=== PATIENT | male | born 1995 | race Caucasian/White ===

== ENCOUNTER 2020-02-05 01:04 | Emergency (ER) | payer OTHER, SELFPAY ==
[2020-02-05] VITALS (7 sets, daily range): BP systolic 115–155; BP diastolic 63–89; PULSE 73–114; RESP 14–22; TEMP 36.7; O2SAT 93–100
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
--- NOTE | 2020-02-05 01:20 | ECG_ITS ---
Measurements Intervals [place] Rate: 96 P: 71 GA: 147 QRS: 50 QRSD: 106 T: 45 QT: 329 QTc: 416 Interpretive Statements SINUS RHYTHM BASELINE ARTIFACT- I, II, III NORMAL ECG Electronically Signed On 02-05-2020 7:19:18 CDT by Viraj Vázquez D.O.
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
[2020-02-05] MEDS: SODIUM CHLORIDE 0.9% IV 1,000 ML 999 ML IV CONT (01:39)
--- NOTE | 2020-02-05 01:54 | PC.NURSE ---
pt attempted to give urine sample, no success. pt refused straight cath. pt given glass of water per verbal order by pa. pt to CT at this time.
--- NOTE | 2020-02-05 01:59 | PC.NURSE ---
this RN called edu in lab due to CMP order reading ordered and not received. edu states that label wasn't sent down w/ blood. this RN informed edu that the label was scanned and sent down in the side of the bag. edu states she will look for it. notified.
[2020-02-05 02:02] LABS: Basophils Absolute Auto 0.1 K/mm3 (0.0-0.1); Basophils Percent Auto 0.3 % (0.2-1.2); Eosinophils Percent Auto 0.1 % (0-4.4); Hematocrit 43.3 % (42.0-52.0); Hemoglobin 14.4 g/dL (14.0-18.0); Immature Granulocyte Absolute 0.14 K/mm3 (0.00-0.031); Immature Granulocyte Percent A 0.7 % (0-0.5); Lymphocytes Percent Auto 8.4 % (18.3-44.2); Mean Corpuscular HGB Conc 33.3 g/dl (32-36); Mean Corpuscular Hemoglobin 29.7 pg (26-34); Mean Corpuscular Volume 89.3 fl (80-100); Mean Platelet Volume 9.9 fl (7.4-10.4); Monocytes Absolute Auto 1.5 K/mm3 (0.1-0.6); Monocytes Percent Auto 6.8 % (2.6-8.5); Neutrophils Absolute Auto 17.9 K/mm3 (1.3-6.7); Neutrophils Percent Auto 83.7 % (45.5-73.1); Platelet Count Result 343 k/mm3 (150-375); Red Blood Count 4.85 M/mm3 (4.6-6.20); Red Cell Distribution Width 12.1 % (11.5-14.5); White Blood Count 21.4 K/mm3 (4.5-10.0)
[2020-02-05 02:12] LABS: Acetaminophen < 10 ug/mL (10-30); Ethanol < 10 mg/dL (<10); Salicylate < 1.0 mg/dL (2-20)
[2020-02-05 02:28] LABS: Alanine Aminotransferase 16 U/L (4-50); Albumin Level 4.4 g/dL (3.5-5.1); Alkaline Phosphatase 84 U/L (38-126); Aspartate Amino Transferase 24 U/L (17-59); Bilirubin,Total 0.1 mg/dL (0.2-1.3); Blood Urea Nitrogen 15 mg/dL (9-20); Calcium 8.4 mg/dL (8.4-10.2); Carbon Dioxide 28 mmol/L (22-30); Chloride 105 mmol/L (98-107); Estimated CRCL calculation 122 ml/min; Estimated Glomerular Filt Rate > 60; Glucose 127 mg/dL (75-110); Potassium 3.4 mmol/L (3.4-5.0); Sodium 138 mmol/L (137-145)
[2020-02-05] MEDS: ONDANSETRON INJ 4 MG/2 ML VIAL IV PUSH (02:36)
--- NOTE | 2020-02-05 02:37 | PC.NURSE ---
pt states he isn't able to urinate at this time. refused straight cath.
[2020-02-05 02:44] LABS: Creatine Kinase 138 U/L (55-170)
--- NOTE | 2020-02-05 03:39 | PC.NURSE ---
pt still not able to urinate at this time, pt given another glass of water. pt again refusing straight cath. pt instructed to use call light when he's able to urinate. dr gibson notified.
[2020-02-05 04:49] LABS: Add Urine Microscopic? NO; Appearance Urine Clear (Clear); Bilirubin Urine Negative (Negative); Blood Urine Negative (Negative); Color Urine Straw (Yellow); Glucose Urine UA Negative (Negative); Ketones Urine Negative (Negative); Leukocyte Esterase Ur Negative LEU/UL (Negative); Nitrate Urine Negative (Negative); Protein Urine Negative (Negative); Urobilinogen Urine Negative mg/dL (<2.0)
[2020-02-05 05:05] LABS: Amphetamine Screen Urine Negative (Negative); Barbiturate Screen Urine Negative (Negative); Benzodiazepines Screen Urine Negative (Negative); Cannabinoid Screen Urine Positive (Negative); Cocaine Screen Urine Positive (Negative); Methadone Screen Urine Negative (Negative); Opiate Screen Urine Negative (Negative); Phencyclidine Screen Urine Negative (Negative)
== END 2020-02-05 05:36 | disposition home or self-care (01) ==
PROVIDERS: Physician Assistant; Emergency Provider Emergency Medicine
DX: Z04.1 Encounter for examination and observation following transport accident (principal); F14.10 Cocaine abuse, uncomplicated; V48.6XXA Car passenger injured in noncollision transport accident in traffic accident, initial encounter
CPT/HCPCS: 36415; 70450; 71046; 71260; 74177; 80053; 80307; 81003; 82550; 85025; 93005; 96361; 96374; 99284; J2405; J7030; Q9967

== ENCOUNTER 2023-07-12 14:22 | Outpatient (CLI) | payer OTHER, SELFPAY ==
--- NOTE | ~2023-07-12 | XR_ITS ---
AP and lateral views of the right femur Clinical History: Pain Findings: No acute fracture or dislocation is seen. Osseous alignment is anatomic. Visualized joint s paces are grossly preserved. There is subcutaneous soft tissue edema along the medial aspect of the m id to distal thigh. Impression: No osseous or articular abnormality. Subcutaneous soft tissue edema along the medial aspect of the mid to distal thigh. Reviewed, dictated and finalized at location M. Impression: No osseous or articular abnormality. Subcutaneous soft tissue edema along the medial aspect of the mid to distal thi gh.
== END 2023-07-12 14:23 ==
PROVIDERS: PCP Family Medicine; Visit Provider Family Medicine
DX: M79.651 Pain in right thigh (principal); S79.921A Unspecified injury of right thigh, initial encounter; X58.XXXA Exposure to other specified factors, initial encounter
CPT/HCPCS: 73552

== ENCOUNTER 2024-07-06 19:00 | Emergency (ER) | payer OTHER, SELFPAY ==
--- NOTE | ~2024-07-06 | XR_ITS ---
EXAMINATION: XR femur LT min 2V DATE: 07/06/2024 19:50 INDICATION: Left posterior thigh dog bites TECHNIQUE: Overlapping proximal and distal, AP and lateral views of the left femur were obtained. COMPARISON: None FINDINGS: Bone alignment is normal. No fracture. Left hip and knee joint spaces are normal. No knee joint effu rusty. Couple bone islands at the proximal left femur. There is soft tissue gas along the lateral left thigh consistent with reported history of prior dog bite. No radiopaque foreign bodies. IMPRESSION: No osseous abnormality or radiopaque foreign body. Reviewed, dictated and finalized at location A.
[2024-07-06 19:03] VITALS: BP 146/98; PULSE 113; RESP 18; TEMP 36.4; O2SAT 96
--- NOTE | 2024-07-06 19:17 | ED.ANIMALBIT ---
HPI - Animal Bite General Chief Complaint: Animal Bite Stated Complaint: dog bite Time Seen by Provider: 07/06/24 19:03 Source: patient Mode of arrival: ambulatory Limitations: no limitations History of Present Illness HPI narrative: This is a 29-year-old male who presents to the ED with chief complaint of dog bite injury just prior to arrival. Patient reports that he was at his girlfriend's house and a dog bit him in the back of his left thigh. Reports the dog clenched on and held on has he shook his leg. Reports large puncture wounds to the leg but no other site of injury. Denies any further site of injury. Related Data Allergies Allergy/AdvReac Type Severity Reaction Status Date / Time No Known Allergies Allergy Verified 07/06/24 19:07 Review of Systems Review of Systems: All systems as dictated in [facility] Social History Social History Smoking status: Current every day smoker Tobacco type: cigarettes Alcohol intake: current Drinks per week: 10 Substance use: current Substance use type: marijuana Other substance usage details: Former crack/cocaine Lack of Transportation: No Lack of Food: Never True Current Housing: I Have Housing Concerned About Future Housing: No Difficulty Paying Gas/Electric Bills: No Difficulty Paying for Meds: No Currently Unemployed: No Education: High School Diploma/GED Difficulty w/ Childcare or Family Care: No Living arrangements: alone Occupation/Education: occupation Gender identity (if verbalized by the patient): Male Agree to blood products: Yes Exam Narrative: GENERAL: Well-appearing, well-nourished, and in no acute distress. HEAD: Normocephalic, atraumatic. EYES: PERRLA and EOMI. ENT: Nares clear, no rhinorrhea or epistaxis. Mucous membranes moist. Oropharynx without tonsillar hypertrophy exudate or other lesions. NECK: Supple. No adenopathy or masses. CHEST: No respiratory distress. Clear to auscultation. No wheezes rales or rhonchi HEART: Regular rate and rhythm. No murmur heard. Normal peripheral pulses. ABDOMEN: Soft, nontender, nondistended, normal active bowel sounds. MSK: Normal range of motion. No edema. Ambulatory without assistance SKIN: 4 large dog bite puncture wounds to the left posterior thigh. bleeding controlled. There is surrounding skin crepitus in the thigh. NEURO: Alert and oriented x4. No focal deficits. PSYCH: Normal mood and affect. Course Vital Signs Vital signs: Vital Signs Temperature 97.6 F 07/06/24 19:03 Pulse Rate 113 H 07/06/24 19:03 Respiratory Rate 18 07/06/24 19:03 Blood Pressure 146/98 H 07/06/24 19:03 Pulse Oximetry 96 07/06/24 19:03 Oxygen Delivery Room Air 07/06/24 19:03 Temperature 98.7 F 07/06/24 21:02 Pulse Rate 82 07/06/24 21:02 Respiratory Rate 17 07/06/24 21:02 Blood Pressure 134/64 07/06/24 21:02 Pulse Oximetry 98 07/06/24 21:02 Oxygen Delivery Room Air 07/06/24 19:03 MDM - Animal Bite MDM Narrative Medical decision making narrative: This is a 29-year-old male who presents to the ED for chief complaint of dog bite to the left posterior thigh. Vitals are normal. Exam remarkable for the above. X-ray does not reveal any foreign bodies or osseous findings. The wounds were well cleansed and irrigated here. Closed loosely with Steri-Strips. Antibiotics prescribed. Tdap updated. Pt will be discharged in stable condition. Return precautions given and supportive measures discussed. Pt is understanding and agreeable with plan for discharge and follow-up with PCP. Discharge Plan Discharge Clinical Impression: Dog bite Patient Disposition: Home, Self-Care Condition: Stable Instructions: Antibiotic Form, Animal Bite (ED) Additional Instructions: Watch out for signs of infection at the wound sites. Keep the areas clean and dry. Take antibiotic
[2024-07-06] MEDS: TETANUS,DIPHTHERIA,AC PERTUSSIS ADULT (0.5 ML) BOOSTRIX IM (20:34)
--- NOTE | 2024-07-06 20:35 | PC.NURSE ---
patient given TDAP vaccine information page, and was given information on the risks and benefits or TDAP vaccine
[2024-07-06 21:02] VITALS: BP 134/64; PULSE 82; RESP 17; TEMP 37.1; O2SAT 98
== END 2024-07-06 21:08 | disposition home or self-care (01) ==
PROVIDERS: Emergency Provider Physician Assistant; PCP Nurse Practitioner Family
DX: S71.152A Open bite, left thigh, initial encounter (principal); W54.0XXA Bitten by dog, initial encounter; F17.210 Nicotine dependence, cigarettes, uncomplicated; Z23 Encounter for immunization
CPT/HCPCS: 73552; 90471; 90715; 99283

== ENCOUNTER 2024-07-12 14:32 | Outpatient (CLI) | payer OTHER, SELFPAY ==
--- NOTE | ~2024-07-12 | XR_ITS ---
EXAMINATION: XR ankle RT min 3V DATE: 07/12/2024 15:08 INDICATION: Pain in right ankle and joints of right foot. TECHNIQUE: 5 views of right ankle were obtained. COMPARISON: None. FINDINGS: Alignment is normal. No fracture. Joint spaces are normal. There are enthesophytes at the p osterior and plantar aspects of calcaneal tuberosity. Ankle soft tissue swelling is noted. IMPRESSION: 1. No arthritis. Reviewed, dictated and finalized at location A. IMPRESSION: 1. No arthritis.
== END 2024-07-12 14:33 | disposition home or self-care (01) ==
PROVIDERS: PCP Family Medicine; Visit Provider Family Medicine
DX: M25.471 Effusion, right ankle (principal)
CPT/HCPCS: 73610

== ENCOUNTER 2024-08-05 10:54 | Emergency (ER) | payer OTHER, SELFPAY ==
--- NOTE | ~2024-08-05 | CT_ITS ---
EXAMINATION: CT femur LT w con DATE: 08/05/2024 13:36 INDICATION: Left lower limb dog bite. TECHNIQUE: Computed tomography (CT) of the left femur was performed with 100 mL Omnipaque 350 intrave nous contrast. Automated exposure control and iterative reconstruction technique were employed. The d ose-length product was 1153.86 mGy-cm. COMPARISON: Left femur radiographs 07/06/2024 FINDINGS: Alignment is normal. No fracture. There are benign bone islands in the left pelvis and left femur. Joint spaces are normal. There are lacerations of the posterior thigh with subcutaneous fat s tranding. No abscess. IMPRESSION: 1. Lacerations of the posterior thigh with inflammation. No abscess. Reviewed, dictated and finalized at location A.
[2024-08-05 10:58] VITALS: BP 138/71; PULSE 98; RESP 16; TEMP 36.8; O2SAT 98
[2024-08-05 12:02] LABS: Basophils Absolute Auto 0.1 K/mm3 (0.0-0.1); Basophils Percent Auto 0.4 % (0.2-1.2); Eosinophils Absolute Auto 0.1 K/mm3 (0-0.3); Eosinophils Percent Auto 0.7 % (0-4.4); Hematocrit 42.2 % (42.0-52.0); Hemoglobin 14.6 g/dL (14.0-18.0); Immature Granulocyte Absolute 0.04 K/mm3 (0.00-0.031); Immature Granulocyte Percent A 0.4 % (0-0.5); Lymphocytes Absolute Auto 1.86 K/mm3 (0.9-3.2); Lymphocytes Percent Auto 16.4 % (18.3-44.2); Mean Corpuscular HGB Conc 34.6 g/dl (32-36); Mean Corpuscular Hemoglobin 32.1 pg (26-34); Mean Corpuscular Volume 92.7 fl (80-100); Mean Platelet Volume 9.5 fl (7.4-10.4); Monocytes Absolute Auto 1.2 K/mm3 (0.1-0.6); Monocytes Percent Auto 10.3 % (2.6-8.5); Neutrophils Absolute Auto 8.1 K/mm3 (1.3-6.7); Neutrophils Percent Auto 71.8 % (45.5-73.1); Platelet Count Result 247 k/mm3 (150-375); Red Blood Count 4.55 M/mm3 (4.6-6.20); Red Cell Distribution Width 12.9 % (11.5-14.5); White Blood Count 11.3 K/mm3 (4.5-10.0)
[2024-08-05 12:17] LABS: Anion Gap 10 mmol/L (4-12); Blood Urea Nitrogen 9 mg/dL (9-20); CRP 1.4 mg/dL (<1.0); Calcium 9.3 mg/dL (8.4-10.2); Carbon Dioxide 31 mmol/L (22-30); Chloride 97 mmol/L (98-107); Estimated CRCL calculation 145 ml/min; Estimated Glomerular Filt Rate > 60; Glucose 77 mg/dL (65-110); Sodium 138 mmol/L (137-145)
[2024-08-05 12:30] LABS: Erythrocyte Sedimentation Rate 2 mm/hr (0-20)
--- NOTE | 2024-08-05 12:54 | ED.GENADULT ---
HPI - General Adult General Chief complaint: Animal Bite Stated complaint: bit by dog 1 mo ago thinks its infected sent by [facility] Time Seen by Provider: 08/05/24 11:59 History of Present Illness HPI narrative: 29-year-old male presents to the emergency department for evaluation for an old dog bite. Patient was initially evaluated emergency department on 07/06 for dog bite and was started on Augmentin. Patient did have follow-up 07/12 and had a 2nd prescription for Augmentin. Patient states that he feels that his legs continued to worsen, patient does have 4 puncture wounds that are still present with surrounding erythema and tenderness. Patient denies any purulent discharge from these. Patient did not have an adequate dressing on the wound upon arrival to the emergency department. Related Data Allergies Allergy/AdvReac Type Severity Reaction Status Date / Time No Known Allergies Allergy Verified 08/05/24 10:55 Review of Systems Review of Systems: All systems reviewed & are unremarkable except as noted in HPI and below PMFSH Social History Social History Smoking status: Current every day smoker Tobacco type: cigarettes Alcohol intake: current Drinks per week: 10 Substance use: current Substance use type: marijuana Other substance usage details: Former crack/cocaine Lack of Transportation: No Lack of Food: Never True Current Housing: I Have Housing Concerned About Future Housing: No Difficulty Paying Gas/Electric Bills: No Difficulty Paying for Meds: No Currently Unemployed: No Education: High School Diploma/GED Difficulty w/ Childcare or Family Care: No Living arrangements: alone Occupation/Education: occupation Gender identity (if verbalized by the patient): Male Agree to blood products: Yes Exam Narrative: APPEARANCE: Well appearing, no pain, no distress, well-nourished. HEAD: normocephalic, atraumatic. EYES: PERRLA/EOMI, conjunctivae clear. NOSE: Normal no drainage EARS:TMS clear with good light reflex. THROAT: Pharynx clear, no exudate. NECK: Supple. No adenopathy, no masses. RESPIRATORY: Airway patent, respirations nonlabored. Clear to auscultation bilaterally, no rales, rhonchi, wheezing. CARDIOVASCULAR: Regular rate and rhythm without murmurs rubs or gallops. ABDOMINAL: Soft, nontender, nondistended, normal bowel sounds MUSCULOSKELETAL: Puncture wounds to left lateral thigh with surrounding erythema and tenderness, activated lymph nodes in left groin, no purulence. NEURO: Alert. Cranial nerves II through XII intact. Good gait. Good coordination SKIN: Warm, dry. Normal Color Course Vital Signs Vital signs: Vital Signs Temperature 98.2 F 08/05/24 10:58 Pulse Rate 98 08/05/24 10:58 Respiratory Rate 16 08/05/24 10:58 Blood Pressure 138/71 08/05/24 10:58 Pulse Oximetry 98 08/05/24 10:58 Temperature 98.2 F 08/05/24 10:58 Pulse Rate 83 08/05/24 14:58 Respiratory Rate 15 08/05/24 14:58 Blood Pressure 120/73 08/05/24 14:58 Pulse Oximetry 100 08/05/24 14:58 Medical Decision Making [facility] Narrative Medical decision making narrative: 21-year-old male presents emergency department for evaluation for a dog bite. Patient felt that the wound had worsened does have some peripheral erythema. Patient is afebrile but does have a leukocytosis of 11.3. Stable hemoglobin of 14.6. Patient has a normal ESR and only a mildly elevated CRP. No acute abnormalities on his CMP. CT scan with contrast showed no evidence of abscess. Patient was treated with a dose of Unasyn in the emergency department. Patient will be discharged home on clindamycin. Since patient has been on multiple doses of antibiotics and is being switched to clindamycin patient was advised to take a probiotic for a month. They were encouraged close follow-up with primary care physician. They have aslo discussed wound care wit
[2024-08-05] MEDS: HYDROmorphone HCL INJ (*CRX) 1 MG/ML SYR 0.5 MG IV PUSH (13:56)
[2024-08-05] MEDS: AMPICILLIN SULB 3 GM/NS 100 ML 3 GM/100 ML VIAL IVPB (14:00)
[2024-08-05 14:01] VITALS: BP 133/88; PULSE 85; RESP 16; O2SAT 100
[2024-08-05 14:58] VITALS: BP 120/73; PULSE 83; RESP 15; O2SAT 100
== END 2024-08-05 15:02 | disposition home or self-care (01) ==
PROVIDERS: Physician Assistant; Emergency Provider Emergency Medicine; PCP Family Medicine
DX: S71.152A Open bite, left thigh, initial encounter (principal); W54.0XXA Bitten by dog, initial encounter
CPT/HCPCS: 36415; 73701; 80048; 85025; 85652; 86140; 87040; 96365; 96375; 99284; J0295; J1171; Q9967

== ENCOUNTER 2024-08-12 09:13 | Outpatient (RCR) | payer OTHER, SELFPAY ==
--- NOTE | 2024-08-12 09:12 | PCWOUND ---
Addendum entered by Jin Moreno RN 08/12/24 09:26: Patient missed the 8:00 appointment, did show up without appointment at 9:17. Original Note: WOCN NOTE Patient did not show up for appointment.
[2024-08-12 10:41] VITALS: BMI 21.9
== END 2024-09-18 12:50 | disposition home or self-care (01) ==
LOC: ANHWOC 09:13
PROVIDERS: PCP Family Medicine; Visit Provider Family Medicine
DX: S71.152A Open bite, left thigh, initial encounter (principal); W54.0XXA Bitten by dog, initial encounter
CPT/HCPCS: 99213; A9270; G0463